=== PATIENT | male | born 1945 | race Caucasian/White ===

== ENCOUNTER → 2025-03-19 | Outpatient (CLI) | payer MEDICARE, SELFPAY ==
--- NOTE | 2025-03-19 11:51 | MRI_ITS ---
PROCEDURE: UPPER EXT JOINT ONLY(ROUTINE) 03/19/2025 REASON FOR EXAM: PAIN IN RT SHLDR TECHNIQUE: UPPER EXT JOINT ONLY(ROUTINE) Multiplanar and multisequence images were obtained without IV contrast administration. COMPARISON: COMPARISON: None available for review. FINDINGS: Bone Marrow: Degenerative marrow signal is noted within the humerus and glenoid. Effusion: Small Soft Tissues: Complete retracted tears of the supraspinatus and infraspinatus muscle with the musculotendinous junctions at the level of the clavicular head. Associated fatty atrophy of both the supraspinatus and infraspinatus muscle suggests chronicity of this finding. Remaining rotator cuff tendons are intact. Mild edema of the deltoid. Superior labrum is poorly visualized. Ligaments and Tendons: Capsular ligaments are otherwise intact. Marginal humeral and glenoid osteophytes with mixed partial and full-thickness cartilaginous thinning. The biceps tendon is noted within the bicipital groove with thinning of the anchor. No evidence of complete tear. MRI/Upper Ext Joint Only(Routine) IMPRESSION: 1. 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 2. 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 Reading Location: [facility]
[2025-03-19 12:04] VITALS: BP 121/77; PULSE 85; RESP 16; O2SAT 97
[2025-03-19 12:11] VITALS: BP 134/71; PULSE 84; RESP 16; O2SAT 97
[2025-03-19 12:26] VITALS: BP 125/71; PULSE 84; RESP 16; O2SAT 95
[2025-03-19 12:40] VITALS: BP 123/74; PULSE 84; RESP 16; O2SAT 94
[2025-03-19 12:43] VITALS: BP 126/56; PULSE 80; RESP 16; O2SAT 97
== END | disposition home or self-care (01) ==
LOC: MRI 11:45
PROVIDERS: PCP Family Medicine; Referring Provider Orthopaedic Surgery; Visit Provider Orthopaedic Surgery
DX: M25.511 Pain in right shoulder (principal)
CPT/HCPCS: 73221